=== PATIENT | female | born 1960 | race Caucasian/White ===

== ENCOUNTER 2018-03-30 08:00 | Outpatient (CLI) | payer MEDICAID | END 2018-03-30 09:00 | disposition home or self-care (01) | LOC: D.MAMMO 08:00 | DX: N64.4 Mastodynia (principal) ==

== ENCOUNTER 2019-05-11 10:30 | Outpatient (CLI) | payer MEDICAID | END 2019-05-11 11:00 | disposition home or self-care (01) | LOC: D.MAMMO 10:30 | PROVIDERS: ATTEND Nurse Practitioner Women's Health | DX: Z12.31 Encounter for screening mammogram for malignant neoplasm of breast (principal) ==